=== PATIENT | female | born 1985 | race Caucasian/White ===

== ENCOUNTER 2017-02-03 10:57 | Emergency (ER) | payer MEDICAID ==
[~2017-02-03] VITALS: Ht 152.4 cm; Wt 86.0 kg
[~2017-02-03 10:57] MED LIST: IBUP-1510 PO; LEVO500T15 PO
[2017-02-03] MEDS ORDERED: KETOROLAC 30MG/ML VIAL IV STA (13:06)
[2017-02-03] MEDS ORDERED: ONDANSETRON HCL 4MG/2ML VIAL IV STA (13:06)
[2017-02-03] MEDS ORDERED: SODIUM CHLORIDE 0.9% 1,000 ML IV ONE (13:06)
[2017-02-03 13:18] LABS: CLARITY URINE CLOUDY (CLEAR); COLOR URINE YELLOW (YELLOW); GLUCOSE URINE NEGATIVE (NEGATIVE); KETONES URINE NEGATIVE (NEGATIVE); LEUKOCYTE ESTERASE URINE 1+ (NEGATIVE); NITRITE URINE NEGATIVE (NEGATIVE); OCCULT BLOOD URINE NEGATIVE (NEGATIVE); PH URINE 6.5 (4.5-8.0); PROTEIN URINE NEGATIVE (NEGATIVE); SPECIFIC GRAVITY URINE 1.026 (1.005-1.030)
[2017-02-03 13:29] LABS: BASOPHILS % 0.7 % (0.0-2.0); EOSINOPHILS % 1.6 % (0.0-5.0); HEMATOCRIT. 39.1 % (36.0-48.0); HEMOGLOBIN. 13.3 g/dL (12.0-16.0); MEAN CORPUSCULAR HEMOGLOBIN 29.4 pg (28.0-32.0); MEAN CORPUSCULAR VOLUME 86.3 fL (81.0-99.0); MEAN PLATELET VOLUME 6.3 fl (7.4-10.4); MONOCYTES % 6.6 % (2.0-8.0); NEUTROPHILS % 58.1 % (40.0-76.0); PLATELET 351 x1000/uL (130-400); RED BLOOD CELL COUNT 4.54 mill/uL (4.2-5.4); RED CELL DISTRIBUTION WIDTH 12.7 % (11.6-14.6)
[2017-02-03 13:35] LABS: PROTHROMBIN TIME 10.3 sec
[2017-02-03 13:40] LABS: CARBON DIOXIDE 27 mEq/L (21-32); CHLORIDE 106 mEq/L (98-107)
[2017-02-03 13:54] LABS: HCG SCREEN NEGATIVE
[2017-02-03 15:14] VITALS: BP 109/67
== END 2017-02-03 16:02 | disposition home or self-care (01) ==
LOC: ER 12:16
DX: N39.0 Urinary tract infection, site not specified (principal); R11.0 Nausea; Z88.6 Allergy status to analgesic agent; Z90.49 Acquired absence of other specified parts of digestive tract
CPT/HCPCS: 36415; 74000; 80053; 81001; 81025; 83690; 84703; 85025; 85610; 96361; 96374; 96375; 99285; J1885; J2405; J7030; Z7610

== ENCOUNTER 2017-02-15 20:23 | Emergency (ER) | payer SELFPAY ==
[~2017-02-15] VITALS: Ht 167.6 cm; Wt 87.0 kg
[2017-02-15] MEDS ORDERED: PREDNISONE 20MG TABLET PO ONE (22:00)
[2017-02-15] MEDS ORDERED: DIPHENHYDRAMINE 25MG CAPSULE PO ONE (22:00)
[2017-02-15 23:31] VITALS: BP 117/90
== END 2017-02-15 23:33 | disposition home or self-care (01) ==
LOC: ER 23:29
DX: T63.441A Toxic effect of venom of bees, accidental (unintentional), initial encounter (principal); J45.909 Unspecified asthma, uncomplicated; Z88.5 Allergy status to narcotic agent
CPT/HCPCS: 99283; J7512; Z7610; Q0163

== ENCOUNTER 2017-03-24 22:47 | Emergency (ER) | payer SELFPAY ==
[~2017-03-24] VITALS: Ht 157.5 cm; Wt 87.0 kg
[2017-03-24 22:49] VITALS: BP 140/90
== END 2017-03-25 02:20 | disposition left against medical advice (07) ==
LOC: ER 22:53
DX: F41.9 Anxiety disorder, unspecified (principal); R11.2 Nausea with vomiting, unspecified; Z53.21 Procedure and treatment not carried out due to patient leaving prior to being seen by health care provider

== ENCOUNTER 2017-08-12 13:09 | Emergency (ER) | payer MEDICAID ==
[~2017-08-12] VITALS: Ht 160 cm; Wt 86.0 kg
[~2017-08-12 13:09] MED LIST changes: -IBUP-1510 PO; +IBUP-2030 PO; -LEVO500T15 PO; +LEVO500T2 PO
[2017-08-12 13:23] VITALS: BP 136/82
== END 2017-08-12 16:22 | disposition home or self-care (01) ==
LOC: ER 13:09
DX: J40 Bronchitis, not specified as acute or chronic (principal); J06.9 Acute upper respiratory infection, unspecified; Z88.5 Allergy status to narcotic agent
CPT/HCPCS: 99282

== ENCOUNTER 2019-07-20 18:49 | Emergency (ER) | payer MEDICAID ==
[~2019-07-20] VITALS: Ht 157.5 cm; Wt 87.0 kg
[~2019-07-20 18:49] MED LIST changes: -IBUP-2030 PO; -LEVO500T2 PO; +PANT40TA4 PO
[2019-07-21] MEDS ORDERED: ONDANSETRON 4MG ODT PO STA (01:48)
[2019-07-21] MEDS ORDERED: SODIUM CHLORIDE 0.9% 1,000 ML IV ONE (01:48)
[2019-07-21] MEDS ORDERED: KETOROLAC 30MG/ML VIAL IV STA (01:48)
[2019-07-21 02:23] LABS: BASOPHILS % 0.4 % (0.0-2.0); EOSINOPHILS % 2.5 % (0.0-5.0); HEMATOCRIT. 39.9 % (36.0-48.0); HEMOGLOBIN. 13.6 g/dL (12.0-16.0); LYMPHOCYTES % 30.8 % (20.0-50.0); MEAN CORPUSCULAR HEMOGLOBIN 29.6 pg (28.0-32.0); MEAN CORPUSCULAR VOLUME 87.2 fL (81.0-99.0); MEAN PLATELET VOLUME 6.6 fl (7.4-10.4); MONOCYTES % 7.6 % (2.0-8.0); NEUTROPHILS % 58.7 % (40.0-76.0); PLATELET 331 x1000/uL (130-400); RED BLOOD CELL COUNT 4.58 mill/uL (4.2-5.4); RED CELL DISTRIBUTION WIDTH 12.8 % (11.6-14.6)
[2019-07-21 02:31] LABS: CHLORIDE 111 mEq/L (98-107)
[2019-07-21 02:44] LABS: PROTHROMBIN TIME 10.2 sec (9.6-11.0)
[2019-07-21 03:08] LABS: COLOR URINE YELLOW (YELLOW); KETONES URINE NEGATIVE (NEGATIVE); LEUKOCYTE ESTERASE URINE NEGATIVE (NEGATIVE); NITRITE URINE NEGATIVE (NEGATIVE); OCCULT BLOOD URINE TRACE (NEGATIVE); PH URINE 5.5 (4.5-8.0); PROTEIN URINE TRACE (NEGATIVE); SPECIFIC GRAVITY URINE 1.029 (1.005-1.030); UROBILINOGEN URINE 0.2 E.U./dL (0.2-1.0)
[2019-07-21 03:38] LABS: CLARITY URINE SL HAZY (CLEAR)
[2019-07-21 06:15] VITALS: BP 97/66
== END 2019-07-21 06:17 | disposition home or self-care (01) ==
LOC: ER 18:49
DX: K52.9 Noninfective gastroenteritis and colitis, unspecified (principal); Z88.5 Allergy status to narcotic agent
CPT/HCPCS: 36415; 80053; 81003; 81025; 83690; 85025; 85610; 96361; 96374; 99283; J1885; J7030; Q0162; Z7610

== ENCOUNTER 2019-11-21 16:26 | Emergency (ER) | payer MEDICAID ==
[~2019-11-21] VITALS: Ht 165.1 cm; Wt 75.0 kg
[2019-11-21] MEDS ORDERED: ONDANSETRON HCL 4MG/2ML INJ IV STA (18:19)
[2019-11-21] MEDS ORDERED: KETOROLAC 30MG/ML VIAL IV STA (18:19)
[2019-11-21 18:47] LABS: BASOPHILS % 0.8 % (0.0-2.0); EOSINOPHILS % 1.5 % (0.0-5.0); HEMATOCRIT. 40.2 % (36.0-48.0); HEMOGLOBIN. 13.7 g/dL (12.0-16.0); MEAN CORPUSCULAR HEMOGLOBIN 29.5 pg (28.0-32.0); MEAN CORPUSCULAR VOLUME 86.2 fL (81.0-99.0); MEAN PLATELET VOLUME 6.6 fl (7.4-10.4); MONOCYTES % 6.2 % (2.0-8.0); NEUTROPHILS % 61.5 % (40.0-76.0); PLATELET 360 x1000/uL (130-400); RED BLOOD CELL COUNT 4.66 mill/uL (4.2-5.4); RED CELL DISTRIBUTION WIDTH 12.9 % (11.6-14.6)
[2019-11-21 18:52] LABS: CHLORIDE 106 mEq/L (98-107)
[2019-11-21 19:20] LABS: CLARITY URINE CLEAR (CLEAR); COLOR URINE YELLOW (YELLOW); KETONES URINE NEGATIVE (NEGATIVE); LEUKOCYTE ESTERASE URINE NEGATIVE (NEGATIVE); NITRITE URINE NEGATIVE (NEGATIVE); OCCULT BLOOD URINE TRACE (NEGATIVE); PROTEIN URINE NEGATIVE (NEGATIVE); SPECIFIC GRAVITY URINE 1.006 (1.005-1.030); UROBILINOGEN URINE 0.2 E.U./dL (0.2-1.0)
[2019-11-21 23:00] VITALS: BP 118/72
== END 2019-11-21 23:01 | disposition home or self-care (01) ==
LOC: ER 16:26
DX: N39.0 Urinary tract infection, site not specified (principal); R03.0 Elevated blood-pressure reading, without diagnosis of hypertension
CPT/HCPCS: 36415; 74176; 80053; 81003; 81025; 85025; 99284

== ENCOUNTER 2023-06-09 03:39 | Emergency (ER) | payer MEDICAID ==
[~2023-06-09] VITALS: Ht 154.9 cm; Wt 90.7 kg
[~2023-06-09 03:39] MED LIST changes: -PANT40TA4 PO; +PANT40TA51 PO
[2023-06-09 04:07] VITALS: BP 131/86; O2SAT 98
[2023-06-09 04:45] LABS: CLARITY URINE CLOUDY (CLEAR); COLOR URINE YELLOW (YELLOW); GLUCOSE URINE NEGATIVE (NEGATIVE); KETONES URINE NEGATIVE (NEGATIVE); LEUKOCYTE ESTERASE URINE 3+ (NEGATIVE); NITRITE URINE NEGATIVE (NEGATIVE); OCCULT BLOOD URINE 3+ (NEGATIVE); PH URINE 5.5 (4.5-8.0); PROTEIN URINE 1+ (NEGATIVE); SPECIFIC GRAVITY URINE 1.013 (1.005-1.030); UROBILINOGEN URINE 0.2 E.U./dL (0.2-1.0)
[2023-06-09] MEDS ORDERED: CEPH500C2 MT (05:20)
[2023-06-09 05:28] LABS: BACTERIA URINE 4+; RBC URINE 15-25 /hpf (0-2); SQUAMOUS EPITHELIAL CELL URINE 1+ /lpf (RARE/1+); WBC URINE TNTC /hpf (0-2)
[2023-06-09] MEDS ORDERED: CEPHALEXIN 250MG CAPSULE PO ONE (05:30)
[2023-06-09 05:33] VITALS: PULSE 75; RESP 17; TEMP 98.7
== END 2023-06-09 05:35 | disposition home or self-care (01) ==
LOC: ER 03:39
DX: N39.0 Urinary tract infection, site not specified (principal); Z88.5 Allergy status to narcotic agent; Z90.49 Acquired absence of other specified parts of digestive tract
CPT/HCPCS: 81003; 81025; 99283

== ENCOUNTER 2023-09-28 18:16 | Emergency (ER) | payer MEDICAID ==
[~2023-09-28] VITALS: Ht 154.9 cm; Wt 86.0 kg
[~2023-09-28 18:16] MED LIST changes: +CEPH500C2 MT
[2023-09-28 18:17] VITALS: BP 161/109; PULSE 110; RESP 18; TEMP 98.5; O2SAT 98
[2023-09-28 19:52] LABS: BASOPHILS % 0.5 % (0.0-2.0); EOSINOPHILS % 1.6 % (0.0-5.0); HEMATOCRIT. 41.2 % (36.0-48.0); HEMOGLOBIN. 13.8 g/dL (12.0-16.0); LYMPHOCYTES % 26.5 % (20.0-50.0); MEAN CORPUSCULAR HEMOGLOBIN 29.9 pg (28.0-32.0); MEAN CORPUSCULAR HGB CONC 33.6 g/dL (31.0-37.0); MEAN PLATELET VOLUME 6.6 fl (7.4-10.4); MONOCYTES % 6.3 % (2.0-8.0); NEUTROPHILS % 65.1 % (40.0-76.0); PLATELET 364 x1000/uL (130-400); RED BLOOD CELL COUNT 4.63 mill/uL (4.2-5.4); RED CELL DISTRIBUTION WIDTH 13.7 % (11.6-14.6); WHITE BLOOD COUNT 9.4 x1000/uL (4.5-11.0)
[2023-09-28 20:06] LABS: INR 0.9; PROTHROMBIN TIME 10.3 sec (9.6-11.0)
[2023-09-28 20:07] LABS: ALANINE AMINOTRANSFERASE 29 IU/L (10-49); ALBUMIN 4.4 g/dL (3.2-4.8); ASPARTATE AMINOTRANSFERASE 21 IU/L (<34); BILIRUBIN TOTAL 0.3 mg/dL (0.1-1.0); CALCIUM 9.2 mg/dL (8.7-10.4); CARBON DIOXIDE 22 mEq/L (21-32); CHLORIDE 109 mEq/L (98-107); CREATININE 0.8 mg/dL (0.6-1.0); GLUCOSE 105 mg/dL (70-105); POTASSIUM 3.5 mEq/L (3.5-5.1); SODIUM 139 mEq/L (136-145); UREA NITROGEN BLOOD 14 mg/dL (9-23)
[2023-09-28 20:11] LABS: HCG SCREEN NEGATIVE
[2023-09-28] MEDS ORDERED: AMOX1TAB16 MT (22:23)
[2023-09-28] MEDS: AMOXICILLIN/POTASSIUM CLAVULANATE 875/125MG TAB PO ONE (22:30)
== END 2023-09-28 23:24 | disposition home or self-care (01) ==
LOC: ER 18:16
DX: R51.9 Headache, unspecified (principal); R68.84 Jaw pain; Z88.5 Allergy status to narcotic agent
CPT/HCPCS: 36415; 70486; 80053; 84703; 85025; 99284

== ENCOUNTER 2023-10-11 09:38 | Emergency (ER) | payer MEDICAID ==
[~2023-10-11] VITALS: Ht 154.9 cm; Wt 87.0 kg
[~2023-10-11 09:38] MED LIST changes: +AMOX1TAB16 MT
[2023-10-11 10:00] VITALS: O2SAT 100
[2023-10-11] MEDS: KETOROLAC 15MG/ML VIAL IM ONE (12:30)
[2023-10-11] MEDS ORDERED: PRED10TA MT (12:58)
[2023-10-11] MEDS ORDERED: ACYC200C31 MT (12:58)
[2023-10-11 13:54] VITALS: BP 139/86; PULSE 57; RESP 18; TEMP 97.9
== END 2023-10-11 13:54 | disposition home or self-care (01) ==
LOC: ER 09:38
DX: G50.0 Trigeminal neuralgia (principal); Z88.5 Allergy status to narcotic agent
CPT/HCPCS: 99283; 81025; 96372; J1885

== ENCOUNTER 2024-03-13 12:56 | Emergency (ER) | payer MEDICAID ==
[~2024-03-13] VITALS: Ht 157.5 cm; Wt 87.1 kg
[~2024-03-13 12:56] MED LIST changes: +ACYC200C31 MT; +PRED10TA MT
[2024-03-13 13:25] VITALS: O2SAT 98
[2024-03-13] MEDS ORDERED: AMOX1TAB16 MT (14:12)
[2024-03-13] MEDS: ACETAMINOPHEN 500MG TABLET PO ONE (14:46)
[2024-03-13 14:48] VITALS: BP 135/80; PULSE 66; RESP 16; TEMP 98.3
== END 2024-03-13 14:59 | disposition home or self-care (01) ==
LOC: ER 12:56
DX: H66.92 Otitis media, unspecified, left ear (principal); Z88.6 Allergy status to analgesic agent; Z90.49 Acquired absence of other specified parts of digestive tract
CPT/HCPCS: 99283